=== PATIENT | female | born 1990 | race Caucasian/White ===

== ENCOUNTER 2023-06-05 09:33 | Emergency (ER) | payer OTHER ==
[~2023-06-05] VITALS: Ht 165.1 cm; Wt 64.0 kg
[2023-06-05 09:37] VITALS: BP 125/68; PULSE 100; RESP 18; TEMP 98.1; O2SAT 97
== END 2023-06-05 09:55 | disposition home or self-care (01) ==
LOC: ER 09:33
DX: F11.90 Opioid use, unspecified, uncomplicated (principal)
CPT/HCPCS: 99281